=== PATIENT | male | born 1960 | race Caucasian/White ===

== ENCOUNTER 2024-07-30 20:04 | Emergency (ER) | payer MEDICAID, SELFPAY ==
[2024-07-30 20:06] VITALS: BMI 28.7
[2024-07-30 20:17] VITALS: BP 146/87; PULSE 110; RESP 18; TEMP 36.9; O2SAT 96
--- NOTE | 2024-07-30 20:54 | XR_ITS ---
Examination: Left hand 2 views TECHNIQUE: AP lateral left and 2 views Examination time: July 30, 2024 2100 hours INDICATIONS: Patient fell today with exam, hand pain. FINDINGS: Dislocation at the proximal interphalangeal joint fourth digit, middle phalanx dorsally positioned No acute fracture detected IMPRESSION: Dislocation at the proximal interphalangeal joint fourth digit
--- NOTE | 2024-07-30 21:00 | XR_ITS ---
Examination: Cervical spine 2 views TECHNIQUE: AP lateral cervical spine 2 views Examination type: July 30, 2024 2106 hours INDICATIONS: Patient fell today with injury to the neck, neck pain FINDINGS: Straightening normal cervical lordosis No cervical fracture Advanced disc narrowing C4-C5, C5-C6, C6-C7, C7-T1 Intact odontoid IMPRESSION: No acute cervical fracture
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
== END 2024-07-30 21:35 | disposition home or self-care (01) ==
LOC: SERX 21:43
PROVIDERS: Emergency Provider Emergency Medicine
DX: S63.285A Dislocation of proximal interphalangeal joint of left ring finger, initial encounter (principal); S10.93XA Contusion of unspecified part of neck, initial encounter; M25.78 Osteophyte, vertebrae; R45.1 Restlessness and agitation; Y09 Assault by unspecified means
CPT/HCPCS: 26775; 72040; 73120; 99283

== ENCOUNTER 2025-03-08 13:25 | Outpatient (AMB) | payer MEDICARE, MEDICAID, SELFPAY ==
[2025-03-08 13:44] VITALS: BP 130/78; PULSE 92; RESP 18; TEMP 36.6; O2SAT 93; BMI 29.2
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
--- NOTE | 2025-03-08 13:44 | XR_ITS ---
EXAMINATION: Bilateral knees 2 views Bilateral knee left lateral knee 2 views Bilateral Axuni single view TECHNIQUE: Bilateral AP knees single view standing, bilateral PA knees single view standing flexion Standing right lateral knee left lateral knee 2 views Bilateral Axuni single view total 5 views Date and time: March 08, 2025, 1349 hours INDICATIONS: Bilateral knee pain beginning 30 years ago. FINDINGS: Severe narrowing [id number] lateral joint space right knee Moderate osteoarthritis right patellofemoral joint Moderate to advanced narrowing lateral joint space left knee Moderate osteoarthritis patellofemoral joint No acute fractures IMPRESSION: Severe narrowing [id number] lateral joint space right knee Moderate to advanced narrowing lateral joint space left knee
== END 2025-03-08 14:21 | disposition home or self-care (01) ==
LOC: HODSRG 13:25
PROVIDERS: PCP Family Medicine; Referring Provider Family Medicine; Supervising Provider Orthopaedic Surgery Adult Reconstructive Orthopaedic Surgery; Visit Provider Orthopaedic Surgery Adult Reconstructive Orthopaedic Surgery
DX: M25.562 Pain in left knee (principal); M25.561 Pain in right knee; M17.0 Bilateral primary osteoarthritis of knee; I10 Essential (primary) hypertension
CPT/HCPCS: 20610; 73564; 99203; G0463; J7325

== ENCOUNTER 2025-04-17 14:02 | Outpatient (AMB) | payer MEDICARE, MEDICAID, SELFPAY ==
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
[2025-04-17 14:12] VITALS: BP 126/77; PULSE 92; RESP 18; TEMP 36.7; O2SAT 95; BMI 30.9
== END 2025-04-17 14:40 | disposition home or self-care (01) ==
PROVIDERS: PCP Family Medicine; Referring Provider Family Medicine; Supervising Provider Orthopaedic Surgery Adult Reconstructive Orthopaedic Surgery; Visit Provider Orthopaedic Surgery Adult Reconstructive Orthopaedic Surgery
DX: M17.0 Bilateral primary osteoarthritis of knee (principal); M25.562 Pain in left knee; M25.561 Pain in right knee; I10 Essential (primary) hypertension
CPT/HCPCS: 20610; 99213; J1010; J2795; G0463